=== PATIENT | female | born 1960 | race Caucasian/White ===

== ENCOUNTER 2016-12-21 05:50 | Day surgery (SDC) | payer OTHER ==
[~2016-12-21] VITALS: Ht 167.6 cm; Wt 52.2 kg
[~2016-12-21 05:50] MED LIST: METHOTREXATE2.5 MG PO; TRAZODONE HCL100 MG PO
[2016-12-21] MEDS ORDERED: ZYRTEC10 MG PO (06:05)
--- NOTE | 2016-12-21 07:02 | EKG ---
[facility] [address] [facility] [place], [place] [address] Signed Normal sinus rhythm Normal ECG No previous ECGs available Confirmed by TALHA BURT MD ([id number]) on 12/21/2016 7:02:32 AM Electronically Signed By: TALHA BURT MD 12/21/16 0702 PATIENT NAME: DONNY GRIMES EVAN Electrocardiogram DATE OF : 58 PHYSICIAN: TALHA BURT MD REPORT #: [id number] REPORT IS CONFIDENTIAL AND NOT TO BE RELEASED WITHOUT AUTHORIZATION
[2016-12-21] MEDS ORDERED: NORCO 5-325 TA1 EACH PO (09:00)
--- NOTE | 2016-12-22 07:08 | OR ---
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 NAME OF PROCEDURE: Excision of interdigital neuroma. SURGEON: Jerson Monterroso MD. ANESTHESIA: General. SPECIMEN: The specimen was sent to the lab as a single specimen. COMPLICATIONS: There were no intraoperative complications. COUNTS: Counts were correct and antibiotic protocols were followed. WHAT WAS DONE: The patient was taken to the operating room. After anesthesia was induced and the airway secured, the patient's right lower extremity was positioned, prepped and draped in a routine sterile fashion. The leg was exsanguinated with elevation for 2 minutes and then the pneumatic tourniquet was inflated about the thigh to 300 mmHg pressure. We then made a dorsal incision in the second webspace beginning at the base of the webspace and extending proximally about 3 cm. Skin was divided sharply, subcutaneous tissue was bluntly spread. The intermetatarsal ligament was then divided and a small lamina cloth grader placed. The inner digital mass was identified. We transected it proximally and then dissected it from the remaining soft tissues distally until the entire mass had been removed. It was delivered off the field and sent to Pathology as a single specimen. The wound was then gently irrigated. Hemostasis was achieved with electrocautery and a routine wound closure was accomplished. A sterile dressing was applied and the patient was awakened to the recovery room where he arrived in stable condition. Counts were correct and antibiotic protocols were followed. Jerson Monterroso MD Electronically Signed By: JERSON MONTERROSO MD 12/22/16 0708 PATIENT NAME: DONNY GRIMES EVAN OPERATIVE REPORT DATE OF : 58 PHYSICIAN: JERSON MONTERROSO MD REPORT #: [id number] REPORT IS CONFIDENTIAL AND NOT TO BE RELEASED WITHOUT AUTHORIZATION [facility] [address] [place] [id number] Signed ASHVINB/Modl /[id number] Electronically Signed By: JERSON MONTERROSO MD 12/22/16 0708 PATIENT NAME: DONNY GRIMES EVAN OPERATIVE REPORT DATE OF : 58 PHYSICIAN: JERSON MONTERROSO MD REPORT #: [id number] REPORT IS CONFIDENTIAL AND NOT TO BE RELEASED WITHOUT AUTHORIZATION
== END 2016-12-21 10:25 | disposition home or self-care (01) ==
LOC: DS 05:50 → OPS 05:50 → DS 06:45 → OPS 10:25
PROVIDERS: Orthopaedic Surgery
PROC: 0JBQ0ZZ Excision of Right Foot Subcutaneous Tissue and Fascia, Open Approach (ICD-10-PCS; principal; 2016-12-21 06:45)
DX: M06.371 Rheumatoid nodule, right ankle and foot (principal); M06.9 Rheumatoid arthritis, unspecified
CPT/HCPCS: 01482; 93005; 93010; J0690; J1100; J1170; J1885; J2250; J2405; J3010; J7120